=== PATIENT | male | born 1960 | race Caucasian/White ===

== ENCOUNTER 2017-03-01 12:16 | Emergency (ER) | payer OTHER ==
[2017-03-01 13:11] LABS: #Basophils 0.2 thou/uL (0.0-0.2); #Eosinphils 0.1 thou/uL (0.0-0.7); #Lymphocytes 1.2 thou/uL (1.20-3.40); #Monocytes 0.9 thou/uL (0.11-0.59); #Neutrophils 10.1 thou/uL (1.40-6.50); %Basophils 1.3 % (0.0-1.0); %Eosinophils 0.9 % (0.0-10.0); %Lymphocytes 9.9 % (21.0-51.0); %Monocytes 7.1 % (0.0-10.0); %Neutrophils 80.8 % (42.0-75.0); Hemoglobin 14.6 g/dL (14.0-18.0); Mean Corpuscular HGB CONC 33.1 g/dL (32.0-36.0); Mean Corpuscular Hemoglobin 29.3 pg (27.0-31.0); Mean Corpuscular Volume 88.5 fl (80.0-94.0); Mean Platelet Volume 6.1 fL (7.4-10.4); Platelet Count 254 thou/uL (130-400); RBC Distribution Width 12.5 % (11.5-14.5); Red Blood Cell (RBC) Count 4.97 mill/uL (4.70-6.10); White Blood Cell (WBC) Count 12.5 thou/uL (4.8-10.8)
[2017-03-01] MEDS ORDERED: Sodium Chloride 0.9% 100 ML ONE ×2 (13:12→17:00)
[2017-03-01] MEDS ORDERED: cefTRIAXone\\ROCEPHIN 2 GM VIAL ONE (13:12)
[2017-03-01 13:25] LABS: ALT (SGPT) 23 U/L (8-55); AST (SGOT) 20 U/L (5-34); Albumin 3.9 g/dL (3.5-5.0); Alkaline Phosphatase 130 U/L (40-150); Anion Gap 12 mmol/L (10-20); BUN (Urea Nitrogen) 8 mg/dL (8.4-25.7); Bilirubin, Total 0.5 mg/dL (0.2-1.2); Calc. Creatinine Clearance 0 mL/min (70-130); Calcium 8.5 mg/dL (7.8-10.44); Carbon Dioxide 24 mmol/L (22-29); Chloride 105 mmol/L (98-107); Estimated GFR-MDRD 65; Glucose 160 mg/dL (70-105); Potassium 4.1 mmol/L (3.5-5.1); Protein, Total 6.9 g/dL (6.0-8.3); Sodium 137 mmol/L (136-145)
[2017-03-01] MEDS ORDERED: Ondansetron HCl/PF 4 MG/2 ML Vial ONE (14:44)
[2017-03-01 15:24] LABS: CRP (Inflammatory) 0.94 mg/dL (= or < 0.5)
[2017-03-01 16:48] LABS: BF Color Colorless; Body Fluid Source SYNOVIAL FLUID; Clarity Cloudy/Turbid (Clear); Tube # 1
[2017-03-01 16:49] LABS: RBC Background Count 0.003; RBC Count-Automated 57000 /cumm; WBC/NonHematic-Auto 65300 /cumm
[2017-03-01] MEDS ORDERED: Ketorolac Tromethamine 30 MG/ML VIAL ONE (17:00)
[2017-03-01 17:08] LABS: BF Segmented Neutrophils 88 %; Cell Count Non Hematic 11 %; Lymphocytes 1 %
== END 2017-03-01 18:41 | disposition short-term general hospital (02) ==
LOC: BURERS 12:16
DX: M00.9 Pyogenic arthritis, unspecified (principal); F17.210 Nicotine dependence, cigarettes, uncomplicated
CPT/HCPCS: 20605; 80053; 82945; 85025; 85060; 85652; 86140; 87040; 87070; 87205; 89051; 89060; 96361; 96365; 96367; 96375; J0696; J1885; J2270; J2405; J3370; J7050

== ENCOUNTER 2021-01-19 06:53 | Emergency (ER) | payer OTHER ==
[2021-01-19] MEDS ORDERED: Acetaminophen 500 MG TAB ONE (07:49)
[2021-01-19] MEDS ORDERED: Ibuprofen 800 MG TAB ONE (07:49)
== END 2021-01-19 08:23 | disposition home or self-care (01) ==
LOC: BURERS 06:53
DX: M19.012 Primary osteoarthritis, left shoulder (principal); M62.830 Muscle spasm of back; F17.210 Nicotine dependence, cigarettes, uncomplicated
CPT/HCPCS: 72125